=== PATIENT | female | born 1990 | race Hispanic/Latino ===

== ENCOUNTER 2025-04-16 23:03 | Emergency (ER) | payer BC ==
[~2025-04-16] VITALS: Ht 162.6 cm; Wt 77.1 kg
[2025-04-16 23:10] VITALS: PULSE 81; RESP 17; TEMP 98.1
[2025-04-17] MEDS ORDERED: DOXYCYCLINE HY100 MG PO (00:38)
[2025-04-17 00:46] VITALS: BP 127/78; PULSE 80; RESP 15; TEMP 98.5; O2SAT 100
== END 2025-04-17 00:51 | disposition home or self-care (01) ==
LOC: ER 04-17 00:24
DX: M53.3 Sacrococcygeal disorders, not elsewhere classified (principal); M79.2 Neuralgia and neuritis, unspecified
CPT/HCPCS: 99282